=== PATIENT | female | born 1990 | race Caucasian/White ===

== ENCOUNTER 2017-04-29 19:06 | Inpatient (IN) | payer MEDICAID, OTHER ==
[~2017-04-29] VITALS: Ht 160 cm; Wt 77.7 kg
[2017-04-29] MEDS: LACTATED RINGER'S 1,000 ML IV SCH ×2 (19:29→20:15)
[2017-04-29] MEDS ORDERED: MISOPROSTOL 200 MCG TAB PR PRN (19:30)
[2017-04-29] MEDS ORDERED: CARBOPROST 250 MCG INJ IM PRN (19:30)
[2017-04-29] MEDS ORDERED: BUTORPHANOL 2 MG INJ IV PRN (19:30)
[2017-04-29] MEDS ORDERED: LIDOCAINE 1% (MPF) 30 ML INJ INJ PRN (19:30)
[2017-04-29] MEDS ORDERED: IBUPROFEN 600 MG TAB PO PRN (19:30)
[2017-04-29] MEDS ORDERED: OXYTOCIN 30 UNITS/LR 500 ML IV PRN (19:30)
[2017-04-29] MEDS ORDERED: OXYTOCIN 30 UNITS/LR 500 ML IV SCH ×3 (19:30→21:00)
[2017-04-29] MEDS ORDERED: METHYLERGONOVINE 0.2 MG INJ IM PRN (19:30)
[2017-04-29 19:34] LABS: BASOPHILS % 0.3 % (0.0-2.0); EOSINOPHILS # 0.1 10^3/ul (0.0-0.5); EOSINOPHILS % 0.7 % (0.0-7.0); HEMATOCRIT 37.3 % (37.0-47.0); HEMOGLOBIN 12.9 g/dl (12.0-16.0); LYMPHOCYTES % 17.5 % (15.0-51.0); MEAN CORPUSCULAR HEMOGLOBIN 28.8 pg (29.0-33.0); MEAN CORPUSCULAR HGB CONC 34.6 g/dl (32.0-37.0); MEAN CORPUSCULAR VOLUME 83.3 fl (82.0-101.0); MEAN PLATELET VOLUME 9.6 fl (7.4-10.4); MONOCYTE # 0.6 10^3/ul (0.3-0.9); PLATELET COUNT 295 10^3/UL (140-415); RED BLOOD COUNT 4.48 10^6/ul (4.20-5.40); RED CELL DISTRIBUTION WIDTH 15.1 % (11.5-14.5); WHITE BLOOD COUNT 11.6 10^3/ul (4.8-10.8)
--- NOTE | 2017-04-29 19:35 | TRIAGE ---
OB Triage Datetime Report Generated by CPN: 04/29/2017 19:35 Datetime: 04/29/2017 19:21 Assessment Type: Admission Assessment Vaginal Bleeding: None Maternal Assessment Level of Consciousness: Fully Conscious DTR's/Clonus: DTRs 2+; No Clonus Headache: Denies Blurred Vision: No Respiratory Effort: Unlabored; Regular Rhythm; Equal Expansion Breath Sounds, Left: Clear and Equal Breath Sounds, Right: Clear and Equal Nausea/Vomiting: Denies RUQ Epigastric Pain: Denies Facial Edema: None Fall Risk Assessment History of Falling: (0) No Secondary Diagnosis: (0) No Ambulatory Aid: (0) Bedrest/Nurse Assist Gait: (0) Normal/Bedrest/Immobile Mental Status: (0) Oriented to Own Ability Datetime: 04/29/2017 19:15 Stage of : OB Triage Datetime: 04/29/2017 19:12 Time of Arrival: 04/29/2017 19:12 EGA: 39.0 Arrived By: Ambulatory Arrived From: Home Chief Complaint: labor Movement: Present Contractions: Regular Rupture of Membranes: Denies Vaginal Bleeding: Normal Show Vaginal Discharge: Denies Recent Sexual Intercouse: Denies Abdominal Trauma: Not Applicable Patient Complaints: Contractions Datetime: 04/29/2017 19:09 Vaginal Exam Dilatation (cms): 6.0 Effacement (%): 90 Station: -1 Exam By: audra rnc Vaginal Bleeding: Normal Show Cervix, Position: Midposition Presentation 'A': Cephalic
[2017-04-29 19:49] VITALS: BP 143/90; PULSE 95; RESP 18
[2017-04-29 19:49] LABS: INR 0.91; PROTIME 12.2 Sec (12.2-14.2)
[2017-04-29 19:50] LABS: PARTIAL THROMBOPLASTIN TIME 31.9 Sec (25.0-35.0)
[2017-04-29] MEDS ORDERED: FENTAnyl 2MCG/ML-ROPIV 0.2% 100 ML ONE (19:51)
[2017-04-29] MEDS ORDERED: LACTATED RINGER'S 1,000 ML IV PRN (20:00)
[2017-04-29 21:01] VITALS: Ht 160 cm; Wt 77.7 kg
[2017-04-29] MEDS ORDERED: NALOXONE (0.4 MG/ML) INJ IV PRN (23:00)
[2017-04-29] MEDS ORDERED: FENTAnyl 2MCG/ML-ROPIV 0.2% 100 ML BAG EPI SCH (23:00)
[2017-04-30] MEDS ORDERED: CLINDAMYCIN 900 MG/D5W (PMX) 50 ML IVPB SCH
--- NOTE | 2017-04-30 01:41 | HP ---
Date/Time of Note Date/Time of Note DATE: 04/30/17 TIME: 01:40 OB - History Hx of Present Free Text/Dictation at term in labor Care: Good Care Ultrasounds: Normal mid trimester US Obstetrical Complications: None Medical Complications: None Past Family/Social History * Past Medical, Surgical, Family and Obstetric Histories reviewed from chart. OB Admission Exam Vital Signs Vital Signs Vital Signs Date Time Temp Pulse Resp B/P Pulse Ox O2 Delivery O2 Flow Rate FiO2 04/29/17 19:49 98.4 95 18 143/90 Room Air Physical Exam HEENT: WNL Heart: Rhythm Normal Lungs: Clear, Equal Abdomen: WNL Extremities: Normal Reflexes: Normal Cervical Dilatation: 10cm Effacement: 100% Station: +2 Membranes: Ruptured Amniotic Fluid: Clear Heart Rate: 120's Accelerations: Accelerations Present Decelerations: No Decelerations Varibility: Marked Contractions on Admission: 6-10 Minutes Apart Last 72 hours Lab Results CBC & BMP 04/29/17 19:20 OB Assessment/Plan Reason for admission: active labor Plan: Expectant Management SHASTA CRAMER MD Apr 30, 2017 01:41
--- NOTE | 2017-04-30 01:42 | LDN ---
Date/Time of Note Date/Time of Note DATE: 04/30/17 TIME: 01:41 Delivery Summary term preg nsd Placenta Delivered: Spontaneously Meconium: none Perineal laceration: 1 Anesthesia type: Epidural Estimated blood loss: 350 Sponge & Needle done & correct: Yes Problems: SHASTA CRAMER MD Apr 30, 2017 01:42
--- NOTE | 2017-04-30 01:46 | DELSUM ---
Delivery Summary A-C Datetime Report Generated by CPN: 04/30/2017 01:46 DELIVERY PERSONNEL Bacon Stringer: Villasenor, Ashley MATERNAL INFORMATION Delivery Anesthesia: Epidural Medications in Delivery: 30 UNIT PITOCIN; FENTANYL Estimated Blood Loss (ml): 350 Placenta Cultured: No Maternal Complications: None LABOR SUMMARY EDC: 05/06/2017 00:00 No. Babies in Womb: 1 Attempted: No Labor Anesthesia: None LABOR INFORMATION Reason for Induction: Not Applicable Onset of Labor: 04/29/2017 14:00 Complete Dilatation: 04/30/2017 01:13 Oxytocin: Augmentation Group B Beta Strep: Negative Antibiotics # of Doses: 0 Steroids Given: None Reason Steroids Not Administered: Not Applicable Other Reason Not Administered: TERM MEMBRANES Membranes Rupture Method: Artificial Rupture of Membranes: 04/30/2017 01:11 Length of Rupture (hr): 0.05 Amniotic Fluid Color: Bloody Amniotic Fluid Amount: Small Amniotic Fluid Odor: None STAGES OF LABOR Stage 1 hr: 11 Stage 1 min: 13 Stage 2 hr: 0 Stage 2 min: 1 Stage 3 hr: 0 Stage 3 min: 7 Total Time in Labor hr: 11 Total Time in Labor min: 21 VAGINAL DELIVERY Episiotomy: None Laceration Extension: First Degree Laceration Type: Perineal Laceration Repair: Yes Initial Vag Sponge Count: 10 Final Vag Sponge Count: 10 Initial Vag Sharps Count: 1 Final Vag Sharps Count: 2 Sponge Count Correct: Yes; Vaginal Sweep Performed Sharps Count Correct: Yes Count Comment: 1 sharp added to field BABY A INFORMATION Delivery Date/Time: 04/30/2017 01:14 Method of Delivery: Vaginal Method of Delivery: Vaginal Born in Route : No : N/A Forceps: N/A Vacuum Extraction: N/A Shoulder Dystocia : N/A SHOULDER DYSTOCIA BABY A Delivery Date/Time: 04/30/2017 01:14 PRESENTATION/POSITION BABY A Presentation: Cephalic Cephalic Presentation: Vertex Vertex Position: Left Occipital Anterior Breech Presentation: N/A PLACENTA INFORMATION BABY A Placenta Delivery Time : 04/30/2017 01:21 Placenta Method of Delivery: Spontaneous Placenta Method of Delivery: Spontaneous Placenta Status: Delivered SCORES BABY A Heart Rate 1 min: >100 bpm Resp Effort 1 min: Good Cry Reflex Irritability 1 min: Cough/Sneeze/Pulls Away Muscle Tone 1 min: Active Motion Color 1 min: Blue/Pale Resuscitation Effort 1 min: Tactile Stimulation SCORE 1 MIN: 8 Heart Rate 5 min: >100 bpm Resp Effort 5 min: Good Cry Reflex Irritability 5 min: Cough/Sneeze/Pulls Away Muscle Tone 5 min: Active Motion Color 5 min: Body [place], Extremit Blue Resuscitation Effort 5 min: Tactile Stimulation SCORE 5 MIN: 9 INFANT INFORMATION BABY A Gestational Age at Delivery: 39.1 Gestational Status: Full Term- 39- 40.6 Weeks Infant Outcome : Liveborn Infant Condition : Stable Sex: Male Sex: Male IDENTIFICATION/MEDS BABY A ID Band Number: [id number] ID Band Location: Right Leg; Left Arm Sensor Applied: Yes Sensor Number: [id number] Sensor Location : Cord Clamp Vitamin K Given : Not Given Erythromycin Given: Not Given WEIGHT/LENGTH BABY A Birthweight (gm): 3775 Weight (lb): 8 Infant Weight (oz): 5 Length (in): 21.00 Length (cm): 53.34 CORD INFORMATION BABY A No. Cord Vessels: 3 Nuchal Cord : N/A Cord Blood Taken: Yes Suction: Mouth; Nose ASSESSMENT BABY A Infant Complications: None Physical Findings at Delivery: Within Normal Limits Infant Respirations: Appears Normal Scientific Aide/ALS Called : No Care By: CHENCHO Childs Transferred To: Remains with Mother
[2017-04-30 04:00] VITALS: BP 140/74; PULSE 69; RESP 20
[2017-04-30] MEDS ORDERED: BENZOCAINE 20% 56 ML SPRAY TOP PRN (04:00)
[2017-04-30] MEDS ORDERED: WITCH HAZEL/GLYCERIN PAD PR PRN (04:00)
[2017-04-30] MEDS ORDERED: ACETAMINOPHEN 325 MG TAB PO PRN (04:00)
[2017-04-30] MEDS ORDERED: HYDROCODONE/APAP (5/325) TAB PO PRN (04:00)
[2017-04-30] MEDS ORDERED: OXYTOCIN 30 UNITS/LR 500 ML IV PRN (04:00)
[2017-04-30] MEDS ORDERED: METHYLERGONOVINE 0.2 MG INJ IM PRN (04:00)
[2017-04-30] MEDS ORDERED: ZOLPIDEM 5 MG TAB PO PRN (04:00)
[2017-04-30] MEDS ORDERED: SENNA/DOCUSATE NA (8.6MG/50MG) TAB PO PRN (04:00)
[2017-04-30] MEDS ORDERED: DIPHENHYDRAMINE 25 MG CAP PO PRN (04:00)
[2017-04-30] MEDS ORDERED: CARBOPROST 250 MCG INJ IM PRN (04:00)
[2017-04-30] MEDS ORDERED: MISOPROSTOL 200 MCG TAB PR PRN (04:00)
[2017-04-30] MEDS ORDERED: LANOLIN 7 GM TUBE TOP PRN (04:00)
[2017-04-30] MEDS: IBUPROFEN 800 MG TAB PO SCH ×3 (05:42→17:54)
[2017-04-30] MEDS: OXYTOCIN 30 UNITS/LR 500 ML IV SCH ×2 (05:47→10:08)
[2017-04-30 06:13] LABS: BARBITURATES Negative (NEGATIVE); BENZODIAZEPINES Negative (NEGATIVE); CANNABINOIDS Negative (NEGATIVE); COCAINE Negative (NEGATIVE); OPIATES Negative (NEGATIVE)
[2017-04-30 08:15] VITALS: BP 103/66; PULSE 62
[2017-04-30] MEDS: LACTATED RINGER'S 1,000 ML IV* SCH ×2 (11:33→14:43)
[2017-04-30 11:42] VITALS: BP 118/62; PULSE 73; RESP 18
[2017-04-30 16:00] VITALS: BP 117/64; PULSE 70; RESP 18
[2017-04-30 20:00] VITALS: BP 114/57; PULSE 71; RESP 20
[2017-05-01] MEDS: IBUPROFEN 800 MG TAB PO SCH ×4 (00:48→17:29)
[2017-05-01] MEDS: LACTATED RINGER'S 1,000 ML IV* SCH ×2 (03:33→11:33)
[2017-05-01 04:00] VITALS: BP 109/65; PULSE 70; RESP 20
[2017-05-01 08:00] VITALS: BP 105/64; PULSE 132; RESP 18
[2017-05-01 10:08] LABS: BASOPHILS % 0.4 % (0.0-2.0); EOSINOPHILS # 0.1 10^3/ul (0.0-0.5); EOSINOPHILS % 0.9 % (0.0-7.0); HEMATOCRIT 33.6 % (37.0-47.0); HEMOGLOBIN 11.2 g/dl (12.0-16.0); LYMPHOCYTES % 19.2 % (15.0-51.0); MEAN CORPUSCULAR HEMOGLOBIN 28.5 pg (29.0-33.0); MEAN CORPUSCULAR HGB CONC 33.3 g/dl (32.0-37.0); MEAN CORPUSCULAR VOLUME 85.5 fl (82.0-101.0); MEAN PLATELET VOLUME 9.8 fl (7.4-10.4); MONOCYTE # 0.4 10^3/ul (0.3-0.9); MONOCYTES % 3.9 % (0.0-11.0); PLATELET COUNT 236 10^3/UL (140-415); RED BLOOD COUNT 3.93 10^6/ul (4.20-5.40); RED CELL DISTRIBUTION WIDTH 15.5 % (11.5-14.5); WHITE BLOOD COUNT 10.2 10^3/ul (4.8-10.8)
--- NOTE | 2017-05-01 12:10 | PN ---
Date/Time of Note Date/Time of Note DATE: 05/01/17 TIME: 12:06 OB Subjective Subjective Subjective day 1 Doing Well Afebrile Ambulatory Chest Clear Breasts are soft , Nipples are intact Abdomen is soft Fundus is firm Moderate amount of lochia No evidence of infection No calf tenderness No ankle edema Perineum is healing well Laboratory Tests Test 05/01/17 09:22 White Blood Count 10.210^3/ul Red Blood Count 3.9310^6/ul Hemoglobin 11.2g/dl Hematocrit 33.6% Mean Corpuscular Volume 85.5fl Mean Corpuscular Hemoglobin 28.5pg Mean Corpuscular Hemoglobin Concent 33.3g/dl Red Cell Distribution Width 15.5% Platelet Count 99749^3/UL Mean Platelet Volume 9.8fl Neutrophils % 75.0% Lymphocytes % 19.2% Monocytes % 3.9% Eosinophils % 0.9% Basophils % 0.4% Nucleated Red Blood Cells % 0.0/100WBC Neutrophils # (Manual) 7.710^3/ul Lymphocytes # 2.010^3/ul Monocytes # 0.410^3/ul Eosinophils # 0.110^3/ul Basophils # 0.010^3/ul Nucleated Red Blood Cells # 0.010^3/ul Current Medications Medications (Trade) Dose Ordered Sig/Angelica Route PRN Reason Start Time Stop Time Status Last Admin Dose Admin Lactated Ringer's (Lr) 1,000 ml @ 125 mls/hr Q8H IV 04/29/17 19:17 04/30/17 03:35 DC 04/29/17 20:15 Butorphanol Tartrate (Stadol) 2 mg Q2H PRN IV PAIN 04/29/17 19:30 04/30/17 03:35 DC Lidocaine 30 ml 30 ml ONCE PRN INJ EPISIOTOMY/TEARING 04/29/17 19:30 04/30/17 03:35 DC Oxytocin/Lactated Ringer's 500 ml @ 125 mls/hr ONCE -MAY REPEAT X1 IV 04/29/17 19:30 04/30/17 03:35 DC 04/30/17 01:33 Oxytocin/Lactated Ringer's 500 ml @ 125 mls/hr ONCE IV 04/29/17 19:30 04/30/17 03:35 DC 04/30/17 01:41 Ibuprofen 600 mg 600 mg ONCE PRN PO Mild Pain (Pain Score 1-3) 04/29/17 19:30 04/30/17 03:35 DC Lactated Ringer's 1,000 ml @ 2,000 mls/hr Q30M PRN IV PRE-EPIDURAL BOLUS 04/29/17 20:00 04/30/17 03:35 DC Oxytocin/Lactated Ringer's 500 ml @ 0 mls/hr ONCE PRN IV For Hemorrhage Management 04/29/17 19:30 04/30/17 03:35 DC Methylergonovine Maleate (Methergine) 0.2 mg ONCE PRN IM VAGINAL BLEEDING 04/29/17 19:30 04/30/17 03:35 DC Carboprost Tromethamine (Hemabate) 250 mcg ONCE PRN IM VAGINAL BLEEDING 04/29/17 19:30 04/30/17 03:35 DC Misoprostol 1000 mcg 1,000 mcg ONCE PRN [place] VAGINAL BLEEDING 04/29/17 19:30 04/30/17 03:35 DC Clindamycin HCl/ Dextrose 50 ml @ 50 mls/hr Q6 IVPB 04/30/17 00:00 04/30/17 00:00 DC Fentanyl/ Ropivacaine 100 ml @ ud STK-MED ONCE .ROUTE 04/29/17 19:51 04/29/17 19:52 DC Oxytocin/Lactated Ringer's 500 ml @ 0 mls/hr TITRATE IV 04/29/17 21:00 04/30/17 03:35 DC 04/29/17 20:51 Naloxone HCl (Narcan) 0.2 mg Q2M PRN IV FOR RESP RATE 8 OR LESS 04/29/17 23:00 04/30/17 03:35 DC Fentanyl/ Ropivacaine 100 ml 100 ml EPIDURAL (PCEA) EPI 04/29/17 23:00 04/30/17 03:35 DC Oxytocin/Lactated Ringer's 500 ml @ 125 mls/hr Q4H IV 04/30/17 03:33 04/30/17 11:32 DC 04/30/17 10:08 Lactated Ringer's (Lr) 1,000 ml @ 125 mls/hr Q8H IV* 04/30/17 03:33 04/30/17 14:43 Ibuprofen (Motrin) 800 mg Q6 PO 04/30/17 06:00 05/01/17 12:03 Acetaminophen/ Hydrocodone Bitart ([place] (5/325)) 2 tab Q4H PRN PO PAIN LEVEL 6-10 04/30/17 04:00 Diphenhydramine HCl (Benadryl) 25 mg Q6H PRN PO PRURITUS 04/30/17 04:00 Zolpidem Tartrate (Ambien) 10 mg QHS PRN PO INSOMNIA 04/30/17 04:00 Senna/Docusate Sodium (Senokot-S) 1 tab BID PRN PO CONSTIPATION 04/30/17 04:00 Magnesium Hydroxide (Milk Of Mag) 30 ml Q12H PRN PO CONSTIPATION 04/30/17 04:00 Witch Priscila/ Glycerin (Tucks Pads) 1 pad BEDSIDE MEDICATION PRN [place] HEMORRHOID/EPISIOTMY PAIN 04/30/17 04:00 04/30/17 08:39 Benzocaine (Dermoplast [place]) 1 spray BEDSIDE MEDICATION PRN TOP HEMORRHOID/EPISIOTMY PAIN 04/30/17 04:00 04/30/17 08:39 Lanolin (Ibw-F-Vpsaqj) 1 applic BEDSIDE MEDICATION PRN TOP BEDSIDE FOR AMANUEL TO NIPPLES 04/30/17 04:00 04/30/17 08:39 Measles/Mumps/ Rubella Vaccine Live (Mmr Ii Vaccine) 0.5 ml ONCE ONCE SC* 05/02/17 09:00 05/02/17 09:01 Diphtheria/ Tetanus/Acell Pertussis (Adacel) 0.5 ml ONCE ONCE IM* 05/02/17 09:00 05/02/17 09:01 Varicella Virus Vaccine Live (Varivax Vaccine With Diluent) 1,350 unit ONCE ONCE SC* 05/02/17 09:00 05/02/17 09:01 Acetaminophen 650 mg 650 mg Q4H PRN PO ELEVATED TEMPERATURE 04/30/17 04:00 Oxytocin/Lactated Ringer's 500 ml @ 0 mls/hr ONCE PRN IV For Hemorrhage Management 04/30/17 04:00 Methylergonovine Maleate (Methergine) 0.2 mg ONCE PRN IM VAGINAL BLEEDING 04/30/17 04:00 Carboprost Tromethamine (Hemabate) 250 mcg ONCE PRN IM VAGINAL BLEEDING 04/30/17 04:00 Misoprostol (Cytotec) 1,000 mcg ONCE PRN [place] VAGINAL BLEEDING 04/30/17 04:00 New born is doing well, Breast feeding FATMATA LEIGH MD May 01, 2017 12:10
[2017-05-01] MEDS ORDERED: MAGNESIUM HYDROXIDE 30ML CUP PO PRN (12:30)
[2017-05-01] MEDS: SENNA TAB PO SCH ×2 (14:06→22:39)
[2017-05-01] MEDS: MAGNESIUM HYDROXIDE 30ML CUP PO PRN (14:06)
[2017-05-01 15:50] VITALS: BP 101/56; PULSE 61; RESP 18
[2017-05-01 20:00] VITALS: BP 114/69; PULSE 74; RESP 20
[2017-05-02] MEDS: IBUPROFEN 800 MG TAB PO SCH ×3 (00:16→12:25)
[2017-05-02 03:56] VITALS: BP 110/61; PULSE 70; RESP 20
[2017-05-02 08:00] VITALS: BP 113/59; PULSE 71; RESP 18
[2017-05-02] MEDS ORDERED: MEASLES,MUMPS,RUBELLA VACCINE INJ SC* ONE (09:00)
[2017-05-02] MEDS ORDERED: VARICELLA VACCINE LIVE/PF 1,350 UNIT/0.5 ML ML SC* ONE (09:00)
[2017-05-02] MEDS ORDERED: DIPHTH/TET/ACEL PERTUSS (ADULT) 0.5 ML VIAL IM* ONE (09:00)
[2017-05-02] MEDS: SENNA TAB PO SCH (09:19)
[2017-05-02] MEDS: MAGNESIUM HYDROXIDE 30ML CUP PO PRN (09:20)
--- NOTE | 2017-05-02 13:05 | QN ---
Documentation Comment PPD# 1 is stable afebrile tolerates diet +BM +voids No Vb No sign of depression VS stable Gen NAD Abd soft NT ND Genitalia No blood at perinium ---->Discharge Home ---->ambulation GABBY GONZALEZ M.D. May 02, 2017 13:05
--- NOTE | 2017-05-02 13:07 | DS ---
Date/Time of Note Date/Time of Note DATE: 05/02/17 TIME: 13:06 Discharge Summary Admission/Discharge Info Admit Date/Time Apr 29, 2017 at 19:10 Discharge Date/Time Apr Discharge Diagnosis Patient Condition: Good Procedures Vaginal delivery Hospital Course Uneventful Home Meds Discontinued Reported Medications [None] No Conflict Check 01/08/10 Primary Care Provider Not On Staff Doctor GABBY GONZALEZ M.D. May 02, 2017 13:07
== END 2017-05-02 16:32 | disposition home or self-care (01) | DRG 775 ==
LOC: OBT 19:06 → L-D 19:07 → OBT 19:10 → L-D 19:10 → PP1 04-30 03:45
PROVIDERS: ADMIT Obstetrics & Gynecology; ATTEND Obstetrics & Gynecology
PROC: 10E0XZZ Delivery of Products of Conception, External Approach (ICD-10-PCS; principal; 2017-04-29)
PROC: 3E033VJ Introduction of Other Hormone into Peripheral Vein, Percutaneous Approach (ICD-10-PCS; 2017-04-29)
DX: O70.0 First degree perineal laceration during delivery (principal); Z37.0 Single live birth; Z3A.38 38 weeks gestation of pregnancy
CPT/HCPCS: 62319; 80307; 85025; 85610; 85730; 86592; 86900; 86901; 87340; 90715; 90716; G0463; J2590; J3010; J7120

== ENCOUNTER 2018-08-12 21:12 | Inpatient (IN) | END 2018-08-15 13:20 | disposition home or self-care (01) | DRG 807 ==